=== PATIENT | male | born 1965 | race Caucasian/White ===

== ENCOUNTER 2019-08-16 05:05 | Emergency (ER) | payer OTHER ==
[~2019-08-16 05:05] MED LIST: FLEXERIL10 MG PO; HYDROCODONE BIT1 T11 PO
[2019-08-16] MEDS ORDERED: NORCO 5-325 TA1 EACH PO (06:39)
== END 2019-08-16 07:00 | disposition home or self-care (01) ==
LOC: ED 05:05
DX: S62.002A Unspecified fracture of navicular [scaphoid] bone of left wrist, initial encounter for closed fracture (principal); W01.0XXA Fall on same level from slipping, tripping and stumbling without subsequent striking against object, initial encounter; Y93.89 Activity, other specified; Y92.098 Other place in other non-institutional residence as the place of occurrence of the external cause; Y99.8 Other external cause status